=== PATIENT | female | born 1965 | race Caucasian/White ===

== ENCOUNTER 2018-11-02 20:23 | Inpatient (IN) | payer OTHER, MEDICAID ==
[~2018-11-02] VITALS: Ht 157.5 cm; Wt 71.7 kg
[2018-11-03] MEDS ORDERED: SODIUM CHLORIDE 0.9% 1000ML BAG (SEPSIS BOLUS) IV ONE
[2018-11-03] MEDS ORDERED: LEVOFLOXACIN 750MG PREMIX 150 ML IV ONE
[2018-11-03] MEDS ORDERED: NITROGLYCERIN 0.4MG TABLET SL SL PRN (00:15)
[2018-11-03] MEDS ORDERED: ASPIRIN 81MG TABLET PO ONE (00:15)
[2018-11-03 00:19] LABS: BASOPHILS % 0.6 % (0.0-2.0); EOSINOPHILS % 8.2 % (0.0-5.0); HEMATOCRIT. 38.6 % (36.0-48.0); HEMOGLOBIN. 12.8 g/dL (12.0-16.0); LYMPHOCYTES % 34.8 % (20.0-50.0); MEAN CORPUSCULAR HEMOGLOBIN 28.7 pg (28.0-32.0); MEAN CORPUSCULAR VOLUME 86.5 fL (81.0-99.0); MEAN PLATELET VOLUME 9.4 fl (7.4-10.4); MONOCYTES % 11.5 % (2.0-8.0); NEUTROPHILS % 44.9 % (40.0-76.0); PLATELET 173 x1000/uL (130-400); RED BLOOD CELL COUNT 4.46 mill/uL (4.2-5.4)
[2018-11-03 00:21] LABS: CHLORIDE 105 mEq/L (98-107)
[2018-11-03 00:27] LABS: D-DIMER 0.31 mg/L FEU (<0.50); PARTIAL THROMBOPLASTIN TIME 27.5 sec (23.4-31.0); PROTHROMBIN TIME 10.3 sec (9.1-11.1)
[2018-11-03] MEDS ORDERED: ACETAMINOPHEN 325MG TABLET PO ONE (00:45)
[2018-11-03 01:02] LABS: CLARITY URINE CLEAR (CLEAR); COLOR URINE YELLOW (YELLOW); KETONES URINE NEGATIVE (NEGATIVE); LEUKOCYTE ESTERASE URINE NEGATIVE (NEGATIVE); NITRITE URINE NEGATIVE (NEGATIVE); OCCULT BLOOD URINE TRACE (NEGATIVE); PH URINE 5.5 (4.5-8.0); PROTEIN URINE NEGATIVE (NEGATIVE); SPECIFIC GRAVITY URINE 1.018 (1.005-1.030); UROBILINOGEN URINE 0.2 E.U./dL (0.2-1.0)
[2018-11-03] MEDS ORDERED: CLONIDINE 0.1MG TABLET PO PRN (04:45)
[2018-11-03] MEDS ORDERED: GUAIFENESIN 200MG/10ML SUGAR FREE UDC PO PRN (04:45)
[2018-11-03] MEDS ORDERED: HYDROCODONE/ACETAMINOPHEN 5/325MG TABLET PO PRN (04:45)
[2018-11-03] MEDS ORDERED: ONDANSETRON HCL 4MG/2ML INJ IV PRN (04:45)
[2018-11-03] MEDS ORDERED: DOCUSATE SODIUM 100MG CAPSULE PO PRN (04:45)
[2018-11-03] MEDS ORDERED: MAGNESIUM/ALUMINUM HYDROXIDE/SIMETHICONE 30ML UDC PO PRN (04:45)
[2018-11-03] MEDS ORDERED: ACETAMINOPHEN 325MG TABLET PO PRN (04:45)
[2018-11-03 06:31] LABS: CREATINE KINASE 105 IU/L (26-192)
[2018-11-03 06:32] LABS: CREATINE KINASE MB FRACTION 1.5 ng/mL (0.5-3.6)
[2018-11-03 08:20] VITALS: BP 173/76
[2018-11-03] MEDS ORDERED: ASPIRIN 81MG EC TABLET PO SCH (09:00)
[2018-11-03] MEDS ORDERED: ENOXAPARIN 40MG/0.4ML SYR SUBCUT SCH (09:00)
[2018-11-03 12:00] VITALS: BP 152/56
[2018-11-03] MEDS ORDERED: AMLODIPINE 10MG TABLET PO SCH (14:15)
[2018-11-03 16:00] VITALS: BP 134/71
[2018-11-03] MEDS ORDERED: INFLUENZA VIRUS VACCINE(AFLURIA) 0.5ML SYR IM ONE (17:15)
[2018-11-03 17:36] LABS: CREATINE KINASE 98 IU/L (26-192)
[2018-11-03 18:24] VITALS: BP 134/71
== END 2018-11-03 19:28 | disposition home or self-care (01) | DRG 203 ==
LOC: ER 20:59 → 5WST 11-03 01:30 → ENRESERV 11-03 07:30
PROVIDERS: ADMIT Hospitalist; ATTEND Hospitalist
DX: M94.0 Chondrocostal junction syndrome [Tietze] (principal); I10 Essential (primary) hypertension; Z90.49 Acquired absence of other specified parts of digestive tract
CPT/HCPCS: 36415; 71045; 82550; 82553; 83605; 84145; 84484; 85379; 87077; 87186; 87804; 90686; 93005; 93306; 96365; 96366; 99285; J1650; J1956; J7030

== ENCOUNTER 2025-03-02 09:19 | Emergency (ER) | payer SELFPAY ==
[~2025-03-02] VITALS: Ht 157.5 cm; Wt 73.0 kg
[2025-03-02 09:21] VITALS: O2SAT 95
[2025-03-02] MEDS ORDERED: MANNITOL 20% (20GM/100ML) BAG 500ML PREMIX IV ONE (10:00)
[2025-03-02] MEDS: LEVETIRACETAM 1000MG PREMIX 100 ML IV ONE (10:10)
[2025-03-02] MEDS: LABETALOL 5MG/ML 4ML INJ IV ONE (10:10)
[2025-03-02] MEDS ORDERED: MANNITOL 12.5G (25%) VIAL 50ML IV SCH (10:15)
[2025-03-02] MEDS: MANNITOL 20% 250 ML IV SCH (10:17)
[2025-03-02] MEDS ORDERED: NICARDIPINE 100 MG in SODIUM CHLORIDE 0.9% 60 ML IV STA (10:29)
[2025-03-02] MEDS: NICARDIPINE 100 MG in SODIUM CHLORIDE 0.9% 60 ML IV PRN (10:47)
[2025-03-02 10:55] VITALS: BP 204/102; PULSE 50; RESP 22; TEMP 36.5; O2SAT 92
[2025-03-02] MEDS ORDERED: IOHEXOL-350 100 ML BOTTLE ONE (17:01)
== END 2025-03-02 11:12 | disposition short-term general hospital (02) ==
LOC: ER 09:19 → EDBEDREQSVC 10:20 → ER 11:12 → CMPBEDREQ 22:29
DX: I60.9 Nontraumatic subarachnoid hemorrhage, unspecified (principal); I10 Essential (primary) hypertension; Z90.49 Acquired absence of other specified parts of digestive tract; Z79.899 Other long term (current) drug therapy
CPT/HCPCS: 99291; 70496; 96365; 96366; 82962; 70498; 93005; 96368; 99292; 70450; Q9967; J1953; J3490; J2150; J7050